=== PATIENT | female | born 1970 | race Caucasian/White ===

== ENCOUNTER 2019-08-14 05:20 | Inpatient (IN) | payer OTHER ==
[~2019-08-14] VITALS: Ht 162.6 cm; Wt 190.0 kg
[2019-08-14] MEDS ORDERED: ZINC SULFATE 220mg CAP or TAB PO ONE (06:30)
[2019-08-14] MEDS ORDERED: ASCORBIC ACID 500 MG TAB PO ONE (06:30)
[2019-08-14 06:43] LABS: Basophils # (auto) 0.1 10 ^3/uL (0-0.2); Basophils % (auto) 1.5 % (0.0-2.0); Eosinophils # (auto) 0.5 10 ^3/uL (0-0.8); Eosinophils % (auto) 7.4 % (0.0-7.0); Lymphocytes # (auto) 2.5 10 ^3/uL (0.4-5.4); Lymphocytes % (auto) 35.5 % (10.0-50.0); Mean Corpuscular Hemoglobin 29.8 pg (28.0-32.0); Mean Corpuscular Hgb Conc. 33.5 g/dL (32.0-36.0); Mean Corpuscular Volume 89.1 fL (80.0-100.0); Monocytes # (auto) 0.6 10 ^3/uL (0-1.3); Monocytes % (auto) 8.6 % (0.0-12.0); Neutrophils # (auto) 3.2 10 ^3/uL (1.6-8.6); Nucleated Red Blood Cells % 0.1 %; Platelet Count (auto) 319 10^3/uL (140-450); Red Blood Cells 4.71 10^6/uL (4.0-5.20); Red Cell Distribution Width 14.9 % (11.8-14.3); White Blood Cell 6.9 10^3/uL (4.4-10.8)
[2019-08-14 06:54] LABS: INR 0.91 (0.9-1.15); Partial Thromboplastin Time 24.6 sec (23.64-32.05)
[2019-08-14 07:02] LABS: Albumin 3.7 g/dL (3.4-5.0); Anion Gap 8 (5-15); Blood Urea Nitrogen 20 mg/dL (7-18); Calcium 8.8 mg/dL (8.5-10.1); Carbon Dioxide 24 mmol/L (21-32); Chloride 106 mmol/L (98-107); Glucose 115 mg/dL (74-106); Potassium 3.6 mmol/L (3.5-5.1); Sodium 138 mmol/L (136-145)
[2019-08-14 07:07] LABS: Alanine Aminotransferase 38 U/L (13-56); Alkaline Phosphatase 83 U/L (45-117); Aspartate Aminotransferase 28 U/L (15-37); Bilirubin, Total 0.5 mg/dL (0.2-1.0); GFR African American 102 mL/min; GFR Non-African American 85 mL/min; Total Protein 7.1 g/dL (6.4-8.2)
[2019-08-14 07:16] LABS: Lactic Acid w/Reflex 3.6 mmol/L (0.4-2.0)
[2019-08-14] MEDS ORDERED: SODIUM CHLORIDE 0.9% 1,000 ML IV ONE (07:34)
[2019-08-14] MEDS ORDERED: cefTRIAXone 1GM/50ML D5W 50 ML IV ONE (07:45)
[2019-08-14] MEDS ORDERED: AZITHROMYCIN 500MG/ 250ML 250 ML IV ONE (07:45)
[2019-08-14] MEDS ORDERED: LACTULOSE 20Gm/30ML SOLN PO PRN (09:45)
[2019-08-14] MEDS ORDERED: NITROGLYCERIN 0.4 MG SL TAB SL PRN (09:45)
[2019-08-14] MEDS ORDERED: PROMETHAZINE HCL 25 MG/ML 1ML IV PRN (09:45)
[2019-08-14] MEDS ORDERED: TEMAZEPAM 15 MG CAP PO PRN (09:45)
[2019-08-14] MEDS ORDERED: MORPHINE SULF INJ 2 MG/ML SYRINGE 1ML IV PRN ×2 (09:45→19:15)
[2019-08-14] MEDS ORDERED: traMADol HCL 50 MG TAB PO PRN (09:45)
[2019-08-14] MEDS ORDERED: ACETAMINOPHEN 500 MG TAB PO PRN (09:45)
[2019-08-14] MEDS ORDERED: ASPirin 81 mg TAB PO ONE (10:00)
[2019-08-14 10:49] VITALS: BP 165/87
[2019-08-14] MEDS: SODIUM CHLORIDE 0.9% 1,000 ML IV SCH ×2 (11:24→22:54)
[2019-08-14] MEDS ORDERED: amLODIPine BESYLATE 5 MG TAB PO ONE (11:30)
[2019-08-14] MEDS: NITROGLYCERIN 0.2MG/HR TOPICAL PATCH TD SCH (11:45)
[2019-08-14] MEDS: ENOXAPARIN SOD 40 MG/0.4 ML SYRINGE SC SCH (11:45)
[2019-08-14] MEDS: LABETALOL HCL 5 MG/ML 4ML SYRINGE IV PRN ×2 (12:12→18:57)
[2019-08-14] MEDS ORDERED: hydrALAZINE HCL 20 MG/ML VL IV ONE (13:00)
[2019-08-14 13:14] VITALS: BP 151/93
[2019-08-14 15:56] LABS: Urine Bacteria NONE SEEN /hpf (None Seen); Urine Blood Negative /uL (Negative); Urine WBC 1 /hpf (0 - 5)
[2019-08-14] MEDS ORDERED: LEVO50TA7 PO (19:42)
[2019-08-14] MEDS ORDERED: OME20T PO (19:42)
[2019-08-14] MEDS ORDERED: BUPR100T14 PO (19:42)
[2019-08-14] MEDS ORDERED: AMLO5TAB15 PO (19:42)
[2019-08-14] MEDS ORDERED: VENL150C58 PO (19:42)
[2019-08-14] MEDS ORDERED: MONT10TA34 (19:42)
[2019-08-14] MEDS ORDERED: MOME200A INH (19:42)
[2019-08-14 22:00] VITALS: BP 120/71
[2019-08-15 06:00] VITALS: BP 131/71
[2019-08-15 06:27] LABS: Cholesterol 227 mg/dL (< 200); HDL Cholesterol 92 mg/dL (40-59); LDL Cholesterol 116 mg/dL (< 100); Triglycerides 149 mg/dL (< 150)
[2019-08-15 09:00] VITALS: BP 133/79
[2019-08-15] MEDS ORDERED: amLODIPine BESYLATE 5 MG TAB PO SCH ×2 (10:00)
[2019-08-15] MEDS ORDERED: ASPirin 81 mg TAB PO SCH (10:00)
[2019-08-15] MEDS: ENOXAPARIN SOD 40 MG/0.4 ML SYRINGE SC SCH (10:58)
[2019-08-15] MEDS: NITROGLYCERIN 0.2MG/HR TOPICAL PATCH TD SCH (10:59)
[2019-08-15] MEDS: SODIUM CHLORIDE 0.9% 1,000 ML IV SCH (12:12)
[2019-08-15 13:00] VITALS: BP 136/84
[2019-08-15 14:21] VITALS: BP 133/76
== END 2019-08-15 15:30 | disposition home or self-care (01) | DRG 313 ==
LOC: ER 05:20 → TELE 05:21 → TELE-EAST 10:43
PROVIDERS: ADMIT Internal Medicine; ATTEND Internal Medicine
DX: R07.89 Other chest pain (principal); E87.2 Acidosis; E03.9 Hypothyroidism, unspecified; E11.9 Type 2 diabetes mellitus without complications; E78.00 Pure hypercholesterolemia, unspecified; E86.0 Dehydration; F32.9 Major depressive disorder, single episode, unspecified; F41.9 Anxiety disorder, unspecified; E11.65 Type 2 diabetes mellitus with hyperglycemia; I10 Essential (primary) hypertension; J45.909 Unspecified asthma, uncomplicated; K21.9 Gastro-esophageal reflux disease without esophagitis; Z82.49 Family history of ischemic heart disease and other diseases of the circulatory system; Z83.3 Family history of diabetes mellitus; Z86.19 Personal history of other infectious and parasitic diseases
CPT/HCPCS: 36415; 71045; 80053; 80061; 81001; 81025; 82550; 82728; 83605; 83880; 84443; 84484; 85025; 85379; 85610; 85652; 85730; 86141; 87040; 87070; 87804; 87880; 93005; 93306; 96365; 96368; G0378; J0696; J3490